=== PATIENT | female | born 1950 | race Caucasian/White ===

== ENCOUNTER 2018-12-14 02:49 | Inpatient (IN) | payer OTHER, BC ==
[~2018-12-14] VITALS: Ht 157.5 cm; Wt 74.0 kg
--- NOTE | 2018-12-14 03:04 | NUR ---
PT BIB [facility] FOR C/O OF L SIDED GROIN PAIN THAT STARTED ON November. PT STATES THAT "I WAS LIFTED MY LEG TO GET INTO MY CAR AND MY GROIN FELT LIKE IT EXPLODED". PT STATES THAT SHE HAS BEEN RECIEVING CARE FROM [facility]. PT STATES THAT SHE MOSTLY HAS PAIN WITH MOVEMENT AND SINCE LAST HER PAIN HAS BEEN GETTING WORSE. PT CALLED 911 TODAY BECAUSE SHE WAS UNABLE TO GET UP FROM HER CHAIR SINCE 0900 YESTERDAY DUE TO HER PAIN. PTS MAIN CONCERN IS HER IMMOBILITY THAT STARTED YESTERDAY. PT RATES HER PAIN A 2/10 AT THIS TIME. CSM INTACT DISTALLY. PT IS A/O X4. RESP ARE EQUAL AND UNLABORED. NO ACUTE DISTRESS NOTED. PTS AT BEDSIDE.
--- NOTE | 2018-12-14 05:23 | NUR ---
PT MEDICATED PER EMAR. PT NOT REPORTING ANY PAIN WHILE LAYING IN GURNEY BUT STATES SHE IS AFRAID TO MOVE IT MIGHT CAUSE HER PAIN. PT VITALS ARE WNL. NO ACUTE DISTRESS NOTED.
--- NOTE | 2018-12-14 07:40 | NUR ---
XRAY AT BEDSIDE
[2018-12-14] MEDS ORDERED: FEMARA2.5 MG PO (07:45)
[2018-12-14] MEDS ORDERED: NORCO1 TA2 PO (07:45)
--- NOTE | 2018-12-14 08:01 | NUR ---
BLEACH LIQUOR MAKER AT BEDSIDE FOR BLOOD DRAW
[2018-12-14 08:27] LABS: CHOLESTEROL/HDL RATIO 4.2; MAGNESIUM 2.3 mg/dL (1.8-2.4); PHOSPHOROUS 4.9 mg/dL (2.5-4.9)
--- NOTE | 2018-12-14 08:36 | NUR ---
PT ADMIT TO MS ROOM 239B GAVE PEPORT TO MARIA T
--- NOTE | 2018-12-14 08:53 | NUR ---
AIR MATTRESS WAS APPLIED PRIOR TO PATIENT ARRIVAL FOR COMFORT AND PREVENTING WOUNDS. DIAGNOSIS LEFT HIP FRACTURE.
--- NOTE | 2018-12-14 08:53 | NUR ---
ARRIVED FROM ED, AAO TIMES 4. SOON SHE ARRIVED SHE STATED SHE HAD TO URINATE. I CALLED DR FERRO, AND HE GAVE ME TELEPHONE ORDER TO INSERT COOMBS CATH SINCE SHE IS HERE FOR LEFT HIP FRACTURE. I INSERTED A COOMBS CATH 16 CIT[place] WITHOUT DIFFICULTY, SHE HAD APPROXIMATELY 200 ML OF ROJELIO CLEAR URINE DRAIN TO BSD. UA AND UDS SENT TO LAB. MRSA NARES SENT TO LAB. LUNGS CTA. NO SOB. O2 SAT ON RA 94%. BS'S ACTIVE TIMES 4. SANDRA STRONG, EXCEPT LEFT HIP IS FRACTURED AND PAINFUL TO MOVE. IV SITE LEFT HAND PATENT, CDI. COOPERTIVE AND PLEASANT. NO C/O PAIN.
[2018-12-14 10:08] VITALS: BP 116/52
[2018-12-14 10:22] VITALS: BP 116/52
[2018-12-14 11:01] LABS: microscopic required? YES; urine erythrocyte TRACE (NEGATIVE)
[2018-12-14 11:10] LABS: AMPHETAMINE QUAL UR NONE DETECTED (See below)
[2018-12-14 13:25] LABS: BASOPHIL % 0.3 % (0-2); PLATELET COUNT 326 x10^3mcL (130-400)
[2018-12-14 13:30] LABS: CALCIUM 9.3 mg/dL (8.5-10.1); CARBON DIOXIDE 30.5 mmol/L (21-32); CHLORIDE SERUM 104 mmol/L (98-107); CREATININE SERUM 0.9 mg/dL (0.6-1.0); GFR1 > 60 mL/min; GLUCOSE SERUM 97 mg/dL (74-106); POTASSIUM SERUM 4.3 mmol/L (3.5-5.1); SODIUM SERUM 143 mmol/L (136-145)
[2018-12-14 17:49] VITALS: BP 127/64
--- NOTE | 2018-12-14 18:26 | NUR ---
AAO TIMES 4. MED SURG PATIENT. AT BEDSIDE, SUPPORTIVE. NO C/O PAIN. NO SOB. THERE IS AN ORDER TO PLACE A TRAPEZE, BUT PHYSICAL THERAPY ISNT HERE AT THIS TIME, THEY WILL PLACE IT TOMORROW AM. COOMBS CATH DRAINED 800 ML OF YELLOW URINE TO BSD. COOPERATIVE AND PLEASANT. SHE IS ON AN AIR MATTRESS.
--- NOTE | 2018-12-14 19:57 | NUR ---
SHIFT REASSESSMENT DONE.PATIENT ALERT AND ORIENTED.DX L HIP FX,HAS AIR MATTRESS.PHYSICAL THERAPY,NEED OVER HEAD TRAPEZE,PHYSICAL THERAPY WILL SET IT UP IN AM PER CHARGE NURSE,AM SHIFT AND RNBORA HAND IV SITE IVF INFUSING.MEDSURG PATIENT.CALL LIGHT IN REACH.COOMBS INTACT.CALL LIGHT IN REACH.FAMILY VISITING,SUPPORTIVE OF CARE.
--- NOTE | 2018-12-14 21:25 | NUR ---
PM MEDS GIVEN,SWALLOWS WELL.
[2018-12-14 21:27] VITALS: BP 113/48
--- NOTE | 2018-12-15 02:29 | NUR ---
PATIENT CHECKED AT INTERVALS.KEEP NPO AT THIS TIME PER CHARGE NURSE.
[2018-12-15 06:00] VITALS: BP 120/48
--- NOTE | 2018-12-15 07:10 | NUR ---
RECEIVED PT FROM DERMATOLOGY TECHNICIAN NURSE. PT RESTING IN BED, AOX4, RESP E/U ON RA. DENIES PAIN AT THIS TIME, NO ACUTE DISTRESS NOTED. IV TO L HAND W/ NO SIGNS OF INFILTRATION, IVF INFUSING WELL. BED IN LOWEST POSITION AND CALL LIGHT WITHIN REACH. WILL CONTINUE TO MONITOR.
--- NOTE | 2018-12-15 07:20 | NUR ---
REPORT TO Leo MCNULTY
[2018-12-15 09:20] VITALS: BP 121/61
--- NOTE | 2018-12-15 12:41 | NUR ---
PT RESTING IN BED, AOX4, RESP E/U N RA. NO ACUTE DISTRESS NOTED AT THIS TIME. BED IN LOWEST POSITION AND CALL LIGHT WITHIN REACH. WILL CONTINUE TO MONITOR.
[2018-12-15 16:15] VITALS: BP 107/63
--- NOTE | 2018-12-15 17:55 | NUR ---
PT IN BED HAVING DINNER, AOX4, RESP E/U ON RA. DENIES PAIN TO L HIP AT THIS TIME, STATED SHE ONLY FEELS PAIN W/ EXERTION/REPOSITIONING, OTHERWISE NO ACUTE DISTRESS NOTED. IV TO L HAND AND RAC W/ NOP ERYTHEMA OR EDEMA, IV INFUSING WELL TO L HAND. OVERHEAD TRAPEZE IN PLACE. BED IN LOWEST POSITION AND CALL LIGHT WITHIN REACH. WILL ENDORSE TO ONCOMING NURSE.
--- NOTE | 2018-12-15 19:11 | NUR ---
RECEIVED PT FROM PREVIOUS SHIFT. AAO. ABLE TO MAKE NEEDS KNOWN. MEDSURG. NO S/S ACUTE DISTRESS. DENIES PAIN. DENIES CP, NO C/O PALPITATIONS. BREATHING E/U ON RA, DENIES SOB. LLE LIMITED ROM, TRAPEZE OVERHEAD. COOMBS DRAINING CLEAR YELLOW URINE TO GRAVITY. IV TO RAC CDI, NO ERYTHEMA OR EDEMA NOTED. CALL LIGHT WITHIN REACH. SAFETY MEASURES IN PLACE. WILL CONTINUE TO MONITOR.
[2018-12-15 20:19] VITALS: BP 132/63
--- NOTE | 2018-12-15 20:50 | NUR ---
PT C/O CONSTIPATION, MILK OF MAGNESIA GIVEN.
--- NOTE | 2018-12-16 01:16 | NUR ---
PT RESTING IN BED. EASILY AROUSABLE. REPORTS HAVING 1X BM SINCE MILK OF MAGNESIA. DENIES PAIN. NO S/S ACUTE DISTRESS. CALL LIGHT WITHIN REACH. SAFETY MEASURES IN PLACE. WILL CONTINUE TO MONITOR.
[2018-12-16 05:38] VITALS: BP 126/63
[2018-12-16 06:45] LABS: BASOPHIL % 0.4 % (0-2); PLATELET COUNT 301 x10^3mcL (130-400); RED CELL DISTRIBUTION WIDTH 13.6 % (11.5-14.5)
[2018-12-16 07:00] LABS: CARBON DIOXIDE 28.7 mmol/L (21-32); CHLORIDE SERUM 107 mmol/L (98-107); CREATININE SERUM 0.7 mg/dL (0.6-1.0); GFR1 > 60 mL/min; GLUCOSE SERUM 103 mg/dL (74-106); MAGNESIUM 2.4 mg/dL (1.8-2.4); PHOSPHOROUS 3.2 mg/dL (2.5-4.9); POTASSIUM SERUM 3.9 mmol/L (3.5-5.1); SODIUM SERUM 144 mmol/L (136-145)
--- NOTE | 2018-12-16 07:08 | NUR ---
RECEIVED PT FROM BUSINESS CHANGE MANAGER NURSE. PT IN BED SLEEPING, AROUSABLE, RESP E/U ON RA. NO SIGNS OF ACUTE DISTRESS NOTED AT THIS TIME. OVERHEAD TRAPEZE IN PLACE. IV TO L HAND W/ NO SIGNS OF INFILTRATION, IVF INFUSING WELL. COOMBS IN PLACE DRAINING YELLOW URINE TO GRAVITY. BED IN LOWEST POSITION AND CALL LIGHT WITHIN REACH. WILL CONTINUE TO MONITOR.
[2018-12-16 09:00] VITALS: BP 116/57
[2018-12-16 11:09] VITALS: Ht 157.5 cm; Wt 74.0 kg
--- NOTE | 2018-12-16 13:11 | NUR ---
PT HEP LOCKED, COOMBS BAG EMPTIED, BROUGHT DOWN FOR CT SCAN AT THIS TIME.
--- NOTE | 2018-12-16 18:00 | NUR ---
SPOKE W/ NURSE FROM [facility]. REQUESTED FOR RESIDENT TO SPEAK W/ DR. ZALDIVAR REGARDING POSSIBLE PT TRANSFER. DR. Gabriela WALLACE INFORMED AND WAS PROVIDED DR. ZALDIVAR'S CELLPHONE NUMBER.
[2018-12-16 18:09] VITALS: BP 131/70
--- NOTE | 2018-12-16 18:32 | NUR ---
PT RESTING IN BED, AOX4, RESP E/U ON RA. DENIES HEADACHE OR PAIN, NO ACUTE DISTRESS NOTED. BED TRAPEZE IN PLACE. IV TO LH AND RAC PATENT AND INTACT W/ NO ERYTHEMA OR EDEMA, IVF INFUSING WELL. COOMBS IN PLACE DRAINING YELLOW URINE TO GRAVITY. BED IN LOWEST POSITION AND CALL LIGHT WITHIN REACH. WILL ENDORSE TO ONCOMING NURSE.
--- NOTE | 2018-12-16 19:05 | NUR ---
CARE ASSUMED FROM OUTGOING RN. PT RESTING COMFORTABLY IN BED. NO ACUTE DISTRESS NOTED. EVEN AND UNLABORED RESPIRATIONS ON RA. DENIES ANY PAIN AT THIS TIME. IV PATENT AND INTACT RUNNING FLUIDS PER EMAR. BED IN LOWEST POSITION. AIR MATTRESS IN USE. TRAPEZE IN PLACE. SIDE RAILS UXP2. CALL LIGHT WITHIN REACH. WILL CONTINUE TO MONITOR.
[2018-12-16 21:09] VITALS: BP 135/59
--- NOTE | 2018-12-17 03:05 | NUR ---
PT RESTING COMFORTABLY IN BED. NO ACUTE DISTRESS NOTED. EVEN AND UNLABORED RESPIRATIONS ON RA. IV PATENT AND INTACT RUNNING FLUIDS PER EMAR. C/O LLE PAIN, BUT TOLERABLE. NO PAIN MEDICATIONS NEEDED AT THIS TIME PER PT. COOMBS PATENT AND INTACT WITH YELLOW URINE OUTPUT. BED IN LOWEST POSITION. AIR MATTRESS IN USE. TRAPEZE IN PLACE. SIDE RAILS UPX2. CALL LIGHT WITHIN REACH. WILL CONTINUE TO MONITOR.
[2018-12-17 05:50] VITALS: BP 137/72
[2018-12-17 06:13] LABS: PLATELET COUNT 290 x10^3mcL (130-400); RED CELL DISTRIBUTION WIDTH 13.7 % (11.5-14.5)
[2018-12-17 06:52] LABS: CALCIUM 9.4 mg/dL (8.5-10.1); CARBON DIOXIDE 27.2 mmol/L (21-32); CHLORIDE SERUM 106 mmol/L (98-107); CREATININE SERUM 0.9 mg/dL (0.6-1.0); GFR1 > 60 mL/min; GLUCOSE SERUM 107 mg/dL (74-106); POTASSIUM SERUM 4.3 mmol/L (3.5-5.1); SODIUM SERUM 143 mmol/L (136-145)
--- NOTE | 2018-12-17 07:00 | NUR ---
RECEIVED REPORT FROM ROXANNE RN, PT RSTING IN BED, IN NO ACUTE DISTRESS
--- NOTE | 2018-12-17 07:01 | NUR ---
PT SLEPT COMFORTABLY IN INTERVALS THROUGHOUT THE SHIFT. NO ACUTE CHANGES NOTED. ALL NEEDS TENDED TO AND MET. ALL SCHEDULED MEDICATIONS GIVEN. IV PATENT AND INTACT RUNNING FLUIDS PER EMAR. COOMBS PATENT AND INTACT. BED IN LOWEST POSITION. SIDE RAILS UPX2. CALL LIGHT WITHIN REACH. WILL ENDORSE TO ONCOMING SHIFT.
--- NOTE | 2018-12-17 07:15 | NUR ---
PT IN BED, IN NO ACUTE RESP DISTRESS, VERBAL, AXOX4, ABLE TO MAKE NEEDS KNOWN, CALM AND COOPERATIVE, PERRLA, NO REDNESS/DISCHARGE, CHEST RISE SYMMETRICALLY, LUNGS CTA, DENIED PAIN/DISCOMFORT/CP, DENIED FINLEY/N/V/D/DIZZINESS, RESP EVEN AND NON-LABORED, ABD ROUND AND NON-TENDER TO TOUCH, CAP REFILL < 2 SECS, PALP PULSES, SKIN W/D/I, WEAKNESS TO (L) HIP S/P AVULSION HIP FX, MEDSURG, BS ACTIVE X 4, LAST BM 12/17/18, SOFT, LALM, IV PATENT AND INFUSING WELL, TRAPEZE IN PLACE, FC INTACT AND PATENT, ALL NEEDS MET AT THIS TIME, SAFETY PROTOCOL FOLLOWED, CONTINUE TO MONITOR
[2018-12-17 08:44] VITALS: BP 115/67
--- NOTE | 2018-12-17 08:51 | NUR ---
PT IN BED, IN NO ACUTE DISTRESS, AM MEDS GIVEN PER MD ORDER VIA EMAR, TAKEN WELL, NO ASE NOTED AT THIS TIME, CONTINUE TO MONITOR
[2018-12-17 09:54] VITALS: BP 115/67
--- NOTE | 2018-12-17 13:30 | NUR ---
PT RESTING IN BED, IN NO ACUTE RESP DISTRESS, FAMILY AT BEDSIDE, SAFETY PROTOCOL FOLLOWED, CONTINUE TO MONITOR
--- NOTE | 2018-12-17 14:38 | NUR ---
PHYSICAL THERAPY DAILY NOTES CO-SIGN All documentation done by the Build Manager for 12/17/18 has been reviewed. I agree with the documentation. Reviewed/Co-Signed by: Maame Dickinson PT Documentation Done by:SAMMY BYNUM PTA
--- NOTE | 2018-12-17 17:23 | NUR ---
PT IN BED, VOID X 1, SOFT STOOL, SKIN W/D/C, ASSISTED TO TURN Q2H, IN NO ACUTE DISTRESS, CONTINUE TO MONTOR
[2018-12-17 17:35] VITALS: BP 135/66
--- NOTE | 2018-12-17 18:02 | NUR ---
PT IN BED, AXOX4, VERBAL, CALM AND COOPERATIVE, IN NO ACUTE RESP DISTRESS, NO COUGH, NO SOB, CHEST RISE SYMMTRICALLY, MEDSURG, ABD ROUND AND NON-TENDER, (L) HIP AVULSION FX, TRAPEZE IN PLACE, DENIED PAIN/CP/FINLEY/PRESSURE/DISCOMFORT, DENIED N/V/D/DIZZINESS, FC INTACT AND INFUSING WELL, IV INTACT AND INFUSIG WLL, NO INFILTRATION NOTED, FAMILY AT BEDSIDE, PALP PULSES, CAP REFILL < 2 SEC, ALL NEEDS MET AT THIS TIME, SAFETY PROTOCOL FOLLOWED, WILL ENDORSE TO ONCOMING RN
--- NOTE | 2018-12-17 19:05 | NUR ---
PT RECEIVED FROM THE DAY SHIFT RN. PT IS ALERT AND ORIENTED X4 , CALM AND COOPERATIVE WITH CARE. NO ACUTE DISTRESS NOTED. PT HAS NO COMPLAINT OF PAIN AT THIS TIME. COOMBS CATHETER IN PLACE DRAINING YELLOW URINE. IV INTACT AND PATENT. SAFETY AND COMFORT MEASURES MAINTAINED, BED IN LOWEST POSITION, CALL LIGHT WITHIN REACH. WILL CONTINUE TO MONITOR AT THIS TIME.
[2018-12-17 20:00] VITALS: BP 136/69
--- NOTE | 2018-12-17 20:34 | NUR ---
[facility] CALLED AND REPORT WAS GIVEN TO DENNY STEWARD. WILL CALL [facility] TO ARRANGE FOR TRANSPORT.
[2018-12-17 20:49] VITALS: BP 125/56
--- NOTE | 2018-12-17 21:06 | NUR ---
[facility] ARRIVED. PT IS DISCONNECTED FROM THE IV TO SALINE LOCKED. ID BANDS REMOVED. PT VS WERE FOLLOWS: BP 125/56 MAP OF 94, MA 81, RR OF 20, O2 SAT IS 95% ON ROOM AIR. LUNGS SOUNDS ARE CTAB, BREATHING IS EQUAL AND UNLABORED. NO ACUTE DISTRES NOTED. PT HAS BEEN CALM AND COOPERATIVE WITH CARE. BOWEL SOUNDS ARE PRESENT AND ACTIVE IN ALL [address] TRAPEZE IN PLACE. PT IS ON AIR MATTRESS AND IS BED BOUND. COOMBS CATHETER IN PLACE DRAINING YELLOW URINE. PT WAS GIVEN DISCHARGE INSTRUCTIONS, ALL QUESTIONS AND CONCERNS WERE ADDRESSED. REPORT GIVEN TO DENNY STEWARD AT 2025.
== END 2018-12-17 21:22 | disposition short-term general hospital (02) | DRG 543 ==
LOC: ED 02:49 → MU 07:28
PROVIDERS: ADMIT Internal Medicine
PROC: 0BBG3ZX Excision of Left Upper Lung Lobe, Percutaneous Approach, Diagnostic (ICD-10-PCS; principal; 2018-12-16)
DX: M84.452A Pathological fracture, left femur, initial encounter for fracture (principal); C78.02 Secondary malignant neoplasm of left lung; C78.01 Secondary malignant neoplasm of right lung; C78.7 Secondary malignant neoplasm of liver and intrahepatic bile duct; E66.2 Morbid (severe) obesity with alveolar hypoventilation; J45.909 Unspecified asthma, uncomplicated; E78.5 Hyperlipidemia, unspecified; Z68.30 Body mass index [BMI] 30.0-30.9, adult; Z85.3 Personal history of malignant neoplasm of breast
CPT/HCPCS: 32405; 97110-GP; 97139; G0378; J1644; J1885; J2001; J2270; J2405; J7030; Q0092; Q9967